=== PATIENT | female | born 1940 | race Caucasian/White ===

== ENCOUNTER 2023-11-27 08:38 | Outpatient (RCR) | payer OTHER, SELFPAY | END 2023-11-27 23:59 | disposition home or self-care (01) | LOC: RPT 08:38 | PROVIDERS: ATTENDING PHYSICIAN Psychiatry & Neurology Neurology; FAMILY PHYSICIAN Internal Medicine Geriatric Medicine | DX: M54.50 Low back pain, unspecified (principal); Z73.6 Limitation of activities due to disability; M62.81 Muscle weakness (generalized) | CPT/HCPCS: 97110; 97162; 97530 ==

== ENCOUNTER → 2023-12-02 08:28 | Outpatient (REF) | payer OTHER, SELFPAY | LOC: PAVMRI 08:28 | PROVIDERS: ATTENDING PHYSICIAN Psychiatry & Neurology Neurology; FAMILY PHYSICIAN Internal Medicine Geriatric Medicine | DX: M54.50 Low back pain, unspecified (principal) | CPT/HCPCS: 72158; A9575 ==

== ENCOUNTER 2023-12-30 09:44 | Outpatient (RCR) | payer OTHER, SELFPAY | END 2023-12-30 23:59 | disposition home or self-care (01) | LOC: RPT 09:44 | PROVIDERS: ATTENDING PHYSICIAN Psychiatry & Neurology Neurology; FAMILY PHYSICIAN Internal Medicine Geriatric Medicine | DX: M54.50 Low back pain, unspecified (principal); Z73.6 Limitation of activities due to disability; R26.2 Difficulty in walking, not elsewhere classified; M62.81 Muscle weakness (generalized) | CPT/HCPCS: 97010; 97110; 97112; 97140; 97530 ==

== ENCOUNTER 2024-01-12 13:56 | Outpatient (RCR) | payer OTHER, SELFPAY | END 2024-01-12 23:59 | disposition home or self-care (01) | LOC: RPT 13:56 | PROVIDERS: ATTENDING PHYSICIAN Psychiatry & Neurology Neurology; FAMILY PHYSICIAN Internal Medicine Geriatric Medicine | DX: M54.50 Low back pain, unspecified (principal); Z73.6 Limitation of activities due to disability; M62.81 Muscle weakness (generalized); R26.2 Difficulty in walking, not elsewhere classified; G89.29 Other chronic pain | CPT/HCPCS: 97110; 97112; 97530 ==

== ENCOUNTER 2024-02-03 08:52 | Outpatient (RCR) | payer OTHER, SELFPAY | END 2024-02-03 12:32 | disposition home or self-care (01) | LOC: RPT 08:52 | PROVIDERS: ATTENDING PHYSICIAN Psychiatry & Neurology Neurology; FAMILY PHYSICIAN Internal Medicine Geriatric Medicine | DX: M54.50 Low back pain, unspecified (principal); Z73.6 Limitation of activities due to disability; M62.81 Muscle weakness (generalized); R26.2 Difficulty in walking, not elsewhere classified; G89.29 Other chronic pain | CPT/HCPCS: 97110; 97530 ==

== ENCOUNTER → 2024-04-06 09:23 | Outpatient (REF) | payer OTHER, SELFPAY | LOC: WDC 09:23 | PROVIDERS: ATTENDING PHYSICIAN Obstetrics & Gynecology Gynecology; FAMILY PHYSICIAN Internal Medicine Geriatric Medicine | DX: Z12.31 Encounter for screening mammogram for malignant neoplasm of breast (principal) | CPT/HCPCS: 77063; 77067 ==

== ENCOUNTER → 2024-04-19 07:45 | Outpatient (REF) | payer OTHER, SELFPAY | LOC: HWRCS 07:45 | PROVIDERS: ATTENDING PHYSICIAN Nuclear Medicine Nuclear Cardiology; FAMILY PHYSICIAN Internal Medicine Geriatric Medicine | DX: I25.10 Atherosclerotic heart disease of native coronary artery without angina pectoris (principal); I48.0 Paroxysmal atrial fibrillation; I34.0 Nonrheumatic mitral (valve) insufficiency | CPT/HCPCS: 93306 ==

== ENCOUNTER → 2024-05-19 06:54 | Outpatient (REF) | payer OTHER, SELFPAY | LOC: PAVMRI 06:54 | PROVIDERS: ATTENDING PHYSICIAN Internal Medicine Geriatric Medicine | DX: R41.3 Other amnesia (principal) | CPT/HCPCS: 70551 ==

== ENCOUNTER → 2024-11-21 13:06 | Outpatient (REF) | payer OTHER, SELFPAY | LOC: RAD 13:06 | PROVIDERS: ATTENDING PHYSICIAN Internal Medicine Geriatric Medicine | DX: I48.0 Paroxysmal atrial fibrillation (principal); E78.5 Hyperlipidemia, unspecified; I10 Essential (primary) hypertension; M25.511 Pain in right shoulder; M79.601 Pain in right arm; M25.512 Pain in left shoulder; K21.9 Gastro-esophageal reflux disease without esophagitis; R42 Dizziness and giddiness; G89.29 Other chronic pain; M54.50 Low back pain, unspecified; R41.3 Other amnesia; Z13.89 Encounter for screening for other disorder | CPT/HCPCS: 71101; 73010 ==

== ENCOUNTER → 2024-11-25 09:03 | Outpatient (REF) | payer OTHER, SELFPAY | LOC: HWRAD 09:03 | PROVIDERS: ATTENDING PHYSICIAN Internal Medicine Geriatric Medicine | DX: R07.81 Pleurodynia (principal) | CPT/HCPCS: 71250 ==

== ENCOUNTER → 2025-03-10 08:52 | Outpatient (REF) | payer OTHER, SELFPAY | LOC: RAD 08:52 | PROVIDERS: ATTENDING PHYSICIAN Nurse Practitioner Adult Health | DX: M54.50 Low back pain, unspecified (principal); M25.551 Pain in right hip | CPT/HCPCS: 72110; 73502 ==

== ENCOUNTER 2025-04-01 17:48 | Emergency (ER) | payer OTHER, SELFPAY ==
[2025-04-01 17:54] VITALS: BP 180/98
[2025-04-01 18:19] VITALS: BMI 29.1
[2025-04-01 18:35] LABS: % Basophils 0.4 % (0-2); % Eosinophils 1.7 % (0-6); % Immature Granulocytes 0.2 % (0-0.5); % Lymphocytes 17.1 % (20.5-51.1); % Neutrophils 74.6 % (42.2-75.2); Absolute Eosinophils 0.1 10^3/uL (0-0.7); Absolute Lymphocytes 1.4 10^3/uL (1.2-3.4); Absolute Monocytes 0.5 10^3/uL (0.1-0.6); Absolute Neutrophils 6.1 10^3/uL (1.4-6.5); Hematocrit 39.1 % (37.0-47.0); Hemoglobin 13.6 g/dL (12.0-16.0); Mean Corp Hgb Conc. 34.8 g/dL (33.0-37.0); Mean Corpuscular Hgb 31.7 pg (27.0-31.0); Mean Corpuscular Volume 91.1 fL (81.0-99.0); Mean Platelet Volume 10.1 fL (7.4-10.4); Nucleated Red Blood Cells % 0 %; Platelet Count 148 10^3/uL (130-400); Red Blood Cell Count 4.29 10^6/uL (4.20-5.40); Red Cell Dist. Width 13.3 % (11.5-14.5); White Blood Cell Count 8.2 10^3/uL (4.8-10.8)
[2025-04-01 18:47] LABS: ALT (SGPT) 18 U/L (0-35); AST (SGOT) 26 U/L (14-36); Albumin 4.1 g/dl (3.5-5.0); Alkaline Phosphatase 92 U/L (38-126); Blood Urea Nitrogen 23 mg/dl (7-17); Carbon Dioxide 27 mmol/L (22-30); Chloride 104 mmol/L (98-107); Estimated Creatinine Clearance 36 ml/min; Glucose 96 mg/dl (70-99); Potassium 4.7 mmol/L (3.5-5.1); Sodium 137 mmol/L (135-145); Total Bilirubin 0.6 mg/dl (0.2-1.3); Total Protein 6.3 g/dl (6.3-8.2); eGFR 55.55
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
[2025-04-01 18:59] LABS: Troponin I < 0.012 ng/ml
[2025-04-01 20:14] VITALS: BP 139/75
[2025-04-01 20:18] LABS: Urine Albumin Negative (Neg - Trace); Urine Bilirubin Negative (Negative); Urine Character Clear (Clear); Urine Color Yellow; Urine Glucose Negative (Negative); Urine Ketone Negative (Negative); Urine Leukocyte 1+ (Negative); Urine Nitrite Negative (Negative); Urine Occult Blood Negative (Negative); Urine Urobilinogen Negative (Neg - 1+)
[2025-04-01 20:39] LABS: Urine Red Blood Cell 0-2 /HPF (0-2)
[2025-04-01] MEDS: TYLENOL 650 MG PO (21:30)
[2025-04-01] MEDS: LIDOCAINE 4% PATCH 1 PATCH TOPICAL (21:30)
[2025-04-01 21:35] LABS: Troponin I < 0.012 ng/ml
== END 2025-04-01 22:25 | disposition home or self-care (01) ==
LOC: EMR 17:48
PROVIDERS: Nurse Practitioner; EMERGENCY PHYSICIAN Emergency Medicine; FAMILY PHYSICIAN Internal Medicine Geriatric Medicine
DX: R07.9 Chest pain, unspecified (principal); M54.2 Cervicalgia; G89.29 Other chronic pain; I48.91 Unspecified atrial fibrillation; I25.10 Atherosclerotic heart disease of native coronary artery without angina pectoris; I10 Essential (primary) hypertension; E78.5 Hyperlipidemia, unspecified; Z86.73 Personal history of transient ischemic attack (TIA), and cerebral infarction without residual deficits; J45.909 Unspecified asthma, uncomplicated; Z90.49 Acquired absence of other specified parts of digestive tract
CPT/HCPCS: 99285; 71046; 74177; 80053; 81003; 81015; 84484; 85025; 93005; Q9967

== ENCOUNTER → 2025-04-17 14:41 | Outpatient (REF) | payer OTHER, SELFPAY | LOC: PAVMRI 14:41 | PROVIDERS: ATTENDING PHYSICIAN Internal Medicine Geriatric Medicine | DX: M54.50 Low back pain, unspecified (principal); M54.16 Radiculopathy, lumbar region | CPT/HCPCS: 72158; A9575 ==

== ENCOUNTER → 2025-04-21 10:05 | Outpatient (REF) | payer OTHER, SELFPAY | LOC: HWWDC 10:05 | PROVIDERS: ATTENDING PHYSICIAN Obstetrics & Gynecology Gynecology; FAMILY PHYSICIAN Internal Medicine Geriatric Medicine | DX: Z12.39 Encounter for other screening for malignant neoplasm of breast (principal) | CPT/HCPCS: 77063; 77067 ==

== ENCOUNTER 2025-05-13 20:15 | Inpatient (IN) | payer OTHER, SELFPAY ==
[2025-05-13] VITALS (8 sets, daily range): BP systolic 101–141; BP diastolic 54–85; BMI 25.4
[2025-05-13 14:44] LABS: Hematocrit 29.8 % (37.0-47.0); Hemoglobin 9.9 g/dL (12.0-16.0); Mean Corp Hgb Conc. 33.2 g/dL (33.0-37.0); Mean Corpuscular Volume 94.0 fL (81.0-99.0); Nucleated Red Blood Cells % 0 %; Platelet Count 150 10^3/uL (130-400); Red Cell Dist. Width 12.9 % (11.5-14.5)
[2025-05-13 14:49] LABS: APTT 30.8 Sec (23.4-35.0); INR 1.68; PT 20.0 Sec (11.4-14.6)
[2025-05-13 14:59] LABS: ALT (SGPT) 17 U/L (0-35); AST (SGOT) 24 U/L (14-36); Albumin 3.5 g/dl (3.5-5.0); Alkaline Phosphatase 49 U/L (38-126); Blood Urea Nitrogen 46 mg/dl (7-17); Calcium 9.0 mg/dl (8.4-10.2); Carbon Dioxide 24 mmol/L (22-30); Chloride 104 mmol/L (98-107); Estimated Creatinine Clearance 37 ml/min; Glucose 124 mg/dl (70-99); Potassium 4.6 mmol/L (3.5-5.1); Sodium 134 mmol/L (135-145); Total Protein 5.3 g/dl (6.3-8.2); eGFR > 60.00
--- NOTE | 2025-05-13 17:01 | ED.GENMED ---
History of Present Illness
General
Chief Complaint: Rectal Bleeding
Source: patient
Exam Limitations: none
Time Seen by Provider: 05/13/25 16:07
Nursing documentation reviewed up to this point in time: agreed with
History of Present Illness
History of Present Illness:
Patient is an 85-year-old female past medical history of CAD A-fib hypertension reflux cholecystectomy hypertension hyperlipidemia stroke on Xarelto presents today for evaluation. Yesterday she was nauseous and did vomit dark emesis. This morning
she woke up feeling nauseous dizzy weak and had 2 episodes of black dark stool mixed with blood. She denies any active bleeding now.
Past History
Past History
ED Past Medical History: Arrthythmia, Asthma, GERD, HTN, Other (cholelithiasis, osteoporosis, osteoarthritis) and Other (back pain)
ED Past Surgical History: Cholecystectomy and Orthopedic (lumbar spinal fusion, left shoulder surgery)
Social History
Tobacco: Non-smoker
Alcohol: None
Personal:
Living: with family
Employment: Retired
Family History
Family History: Other (noncontributory)
Phy Exam
General Physical Exam
General Presentation: well appearing
General age: appears stated age
General Skin: warm and dry
General Habitus: normal
General Mental: alert
General Hydration: appears well hydrated
Cardiovascular Exam
Cardiovascular Exam: irregularly irregular
Pulmonary Exam
Pulmonary Exam: lungs clear and no respiratory distress
Gastrointestinal Exam
Gastrointestinal Exam: soft and other (left sided abd tenderness ; rectal exam dark maroon stool heme positive )
Neurological Exam
Neurological Exam: alert and oriented x3
Musculoskeletal Exam
Musculoskeletal Exam: full ROM
Course
Orders/Labs/Results
Orders:
Orders
05/13/25 14:17
Electrocardiogram (*1) Urgent
Reason for Study: Vertigo / Dizzy
EKG- Treatment ONCE
05/13/25 14:27
Type+Screen Urgent
Complete Blood Count/With Diff Urgent
Comprehensive Metabolic Panel Urgent
PT/INR [Prothrombin Time] Urgent
Is patient on Coumadin/Warfarin?: No
Comment: kateto
PTT Urgent
05/13/25 14:45
ABO2 Urgent
BBK Wristband Number:
Associate notified that ABO2 has been ordered: MANDA
Date: 05/13/25
Time: 14:37
Order Processing Manager ID: [id number]
05/13/25 17:11
CT Abd/pelvis W Iv Cont Urgent
Comment:
Reason For Exam: pain rectal bleed
Pantoprazole [Protonix IV] 40 mg IV NOW STA
05/13/25 17:15
Pantoprazole 80 mg/100 ml Nss [Protonix] 80 mg in 100 ml IV Q10H
05/13/25 20:03
Admit/Transfer Patient As Directed
Co-Sign Provider:
Level of Care: Inpatient admission
Assign to:: Telemetry
Physician / Group: Bora
Diagnosis: UGIB
Reason for Telemetry: Arrhythmia
Date to Stop Telemetry: 05/16/25
Time to Stop Telemetry: 11:00
Reason for Hospitalization: UGIB
Expected length of stay greater than two midnights?: Yes
ELOS- Estimated Length of Stay in days: 3
I certify the patient meets the requirements for IP care: Yes
PRN Pain Medication Management As Directed
May give lesser potent ordered pain med per pt: Yes
preference::
Protocol:: Medication orders for pain may be administered in a
manner that supports deferring to patient preference
when the pt is:
- Requesting an ordered lesser potent pain medication.
Least to most potent pain medications are defined
as: acetaminophen < NSAID < tramadol < opioids
(morphine, oxycodone, hydromorphone).
- Requesting a lesser dose of the same medication IF
ORDERED.
- Requesting a less intrusive route of administration
if both routes are prescribed by the provider (PO <
IV).
05/13/25 20:05
Code Status As Directed
Resuscitation Status: Full Code
05/16/25 11:00
DC Protocol for Telemetry ONCE
Abnormal Lab Results
05/13/25
14:27
WBC 11.3 H 10^3/uL
(4.8-10.8)
RBC 3.17 L 10^6/uL
(4.20-5.40)
Hgb 9.9 L g/dL
(12.0-16.0)
Hct 29.8 L %
(37.0-47.0)
MCH 31.2 H pg
(27.0-31.0)
MPV 10.6 H fL
(7.4-10.4)
Abs Immat Gran (auto) 0.1 H 10^3/uL
(0-0.05)
Absolute Neuts (auto) 9.1 H 10^3/uL
(1.4-6.5)
Neutrophils % 80.8 H %
(42.2-75.2)
Lymphocytes % 15.2 L %
(20.5-51.1)
PT 20.0 H Sec
(11.4-14.6)
Sodium 134 L mmol/L
(135-145)
BUN 46 H mg/dl
(7-17)
Glucose 124 H mg/dl
(70-99)
Total Protein 5.3 L g/dl
(6.3-8.2)
05/13/25 14:27
05/13/25 14:27
Vital Signs
Initial and Last Documented VS:
Initial Vital Signs
Temp Pulse Resp BP Pulse Ox
97.7 F 117 16 101/54 99
05/13/25 14:17 05/13/25 14:17 05/13/25 14:17 05/13/25 14:17 05/13/25 14:17
Last Documented Vital Signs
Temp Pulse Resp BP Pulse Ox
97.7 F 84 18 129/71 98
05/13/25 14:17 05/13/25 19:45 05/13/25 19:45 05/13/25 19:00 05/13/25 19:45
MDM/Problems Addressed
Differential Diagnosis Includes:
Not limited to GI bleed diverticular bleed anemia patient is an 85
MDM/Problems Addressed:
Patient is an 85-year-old female on Xarelto for A-fib presents with complaints of nausea vomiting dark emesis along with episodes of dark black stools today. She did feel weak and dizzy. On exam patient has no active bleeding but does have maroon
dark stool which is heme positive. Abdomen soft she does complain of mild tenderness to left abdomen patient's hemoglobin is 9.9 which is significantly decreased from 13.6 April 01.
She will require admission for GI bleed. Will order Protonix and will CAT scan because of pain. Type and screen ordered however patient does not require blood transfusion at this time.
CT negative. Patient continues with no active bleeding here will require admission.
Chronic conditions affecting care:
on xarelto for afib
*Radiology
Radiology exam reviewed: radiology read reviewed
*Pulse Oximetry
SaO2: 98
Oxygen Mode of Delivery: Room air
Patient hypoxic: no
*EKG
Interpreted by ED Provider?: Yes
Heart Rate: 116
Rate: tachycardiac
Rhythm: sinus
Ischemia: non-specific ST changes
*Critical Care Note
Total Time (30-74mins, 75-104mins- exclusive of procedures): Not Applicable
ED Attending Note
-
Portions of this chart may have been created with voice recognition software.� Occasional wrong word or��sound alike� substitutions may have occurred due to the inherent limitations of voice recognition software.
Discharge Plan
Departure
Patient Disposition: Admit
Date of Disposition: 05/13/25
Time of Disposition: 19:18
Admit to: Telemetry
Admit to doctor: hospitalist
Presentation/result/management discussed w/ accepting MD/DO: Hospitalist
Patient with high blood pressure during this ER visit?: No
Condition: Fair
Covid-19: Not Applicable
Discharge Problem:
GI bleed, Anemia
Interventions
Interventions:
*Risk Screen - Suicide Last Done: 05/13/25 14:22
*General Assessment Last Done: 05/13/25 14:22
*Neglect/Abuse Screening Last Done: 05/13/25 14:22
*ED- Fall Risk Assessment Last Done: 05/13/25 14:22
*ED COVID-19 Vaccine History Last Done: 05/13/25 14:22
KF-Ffotrh-Kmgqlnraff Assessment Last Done: 05/13/25 14:22
ED- Cardiac Assessment Last Done: 05/13/25 14:22
ED- Pulmonary Assessment Last Done: 05/13/25 14:22
[2025-05-13] MEDS: PROTONIX IV 40 MG IV (17:21)
[2025-05-13] MEDS: PROTONIX 100 IV (17:21)
--- NOTE | 2025-05-13 20:14 | HPS.HSE ---
Family Physician
-
Family Physician: Parker Prince
Chief Complaint
-
Nausea, Black Stools
History of Present Illness
Patient is an 85y F with PMH significant for ASCVD, hypertension and GERD who presents to ED complaining of N/V and black stools. Patient states that she developed nausea yesterday afternoon shortly after her daily walk. She had a single
episode of non-bloody emesis and continued to feel nauseated. She had a single episode of loose, black colored stool. Her nausea persisted into today and she had another bowel movement - more formed but also black in color. Patient notes that
when she flushed she noted red discoloration in the water.
Patient reports feeling lightheaded and weak for the past 24 hours. She cannot stand for long periods of time without becoming lightheaded. She denies any LOC or falls.
No prior h/o GI bleeding.
She is on Xarelto for A-Fib and ASCVD. Her last dose of this was Thursday evening.
Medical History
Past Medical History
Past Medical History: Reports Other
Additional Past Medical History:
ASCVD (CAD, CVA)
Hypertension
GERD
Squamous Cell Skin Cancer
Scoliosis
Past Surgical History: Reports Other
Additional Past Surgical History:
PTCA with Stent
Cholecystectomy
Lumbar Discectomy
Spinal Surgery
Tubal Ligation
Cataracts
Left Breast Biopsy (benign)
Right Tib-Fib ORIF
Social History
Tobacco: Non-smoker
Alcohol: None
Drug: None
Family History
Family History: Not pertinent
Allergies / Home Medications
Allergies reflects when Allergies were last updated in [facility].
Home Medications with original date entered in [facility]
Allergy/Medication List:
Allergies
Allergy/AdvReac Type Severity Reaction Status Date / Time
codeine Allergy Vomiting Verified 04/01/25 17:56
tramadol Allergy Nausea / Verified 04/01/25 17:56
Vomiting
Home Medications
ascorbic acid (vitamin C) 1,000 mg tablet (Vitamin C) 1,000 mg PO DAILY 06/09/13
multivitamin with folic acid 400 mcg tablet (Tab-A-Steve) 1 tab PO DAILY 01/19/15
omeprazole 20 mg capsule,delayed release 20 mg PO BID 04/13/18
amlodipine 2.5 mg tablet 2.5 mg PO DAILY 05/13/25
cholecalciferol (vitamin D3) 25 mcg (1,000 unit) tablet 25 mcg PO DAILY 05/13/25
coenzyme Q10 100 mg tablet 100 mg PO DAILY 05/13/25
cyclobenzaprine 10 mg tablet 10 mg PO DAILY 05/13/25
memantine 5 mg tablet 5 mg PO BID 05/13/25
metoprolol succinate 25 mg tablet,extended release 24 hr 25 mg PO DAILY 05/13/25
polyvinyl alcohol 1.4 % eye drops (Artificial Tears (polyvinyl alcohol)) 1 drp ophthalmic (eye) DAILYPRN PRN dry eyes 05/13/25
rivaroxaban 20 mg tablet (Xarelto) 20 mg PO DAILY 05/13/25
sodium chloride 3 % nasal mist (Saline Nasal Mist) 1 spray intranasal DAILYPRN PRN dry sinuses 05/13/25
spironolactone 25 mg tablet 12.5 mg PO DAILY 05/13/25
tramadol 50 mg tablet 50 mg PO DAILYPRN PRN moderate pain 05/13/25
Review of Systems
-
History Source: Patient
A 12 point ROS was completed and negative except as noted: Yes
Constitutional: Reports Fatigue; Denies Fever or Chills
Respiratory: Denies Cough or Trouble Breathing
Cardiac: Denies Chest Pain or Palpitations
Abdomen/GI: Reports Nausea, Vomiting, Diarrhea and Black Stools; Denies Abdominal Pain
: Denies Dysuria, Frequency or Flank Pain
Musculoskeletal: Denies Joint Pain or Edema
Neurological: Reports Dizzy; Denies Headache
Psych: Denies Depression or Anxiety
Physical Exam
Vital Signs
Vital Signs
Temp Pulse Resp BP Pulse Ox
97.7 F 84 18 129/71 98
05/13/25 14:17 05/13/25 19:45 05/13/25 19:45 05/13/25 19:00 05/13/25 19:45
Physical Exam
General: Other (85y F in no acute distress.)
HEENT: Moist mucous membranes and PERRLA
Respiratory: Clear; No Wheezes, Rales or Rhonchi
Cardiac: S1/S2 and Regular Rhythm; No Murmur
GI: Soft, Non Distended, Normal Bowel Sounds and Other (Mildly, diffusely tender.)
Musculoskeletal: No Clubbing, No Cyanosis and Other (1+ edema of the RLE / post-surgical changes.)
Neuro: AO x 3
Laboratory Results
-
05/13/25 14:27
05/13/25 14:27
Laboratory Results
PT 20.0 Sec (11.4-14.6) H 05/13/25 14:27
INR 1.68 05/13/25 14:27
APTT 30.8 Sec (23.4-35.0) 05/13/25 14:27
Total Bilirubin 0.8 mg/dl (0.2-1.3) 05/13/25 14:27
AST 24 U/L (14-36) 05/13/25 14:27
ALT 17 U/L (0-35) 05/13/25 14:27
Alkaline Phosphatase 49 U/L (38-126) 05/13/25 14:27
Impression/Plan
-
A/P: Patient is an 85y F with PMH significant for ASCVD, hypertension and GERD who presents to ED complaining of N/V and black stools for the past 2 days.
UGIB / Melena
Acute Blood Loss Anemia secondary to the above
N/V - suspected gastritis
GERD
- Admit for further evaluation and treatment.
- Hgb 9.9 down from baseline of 13 - 14.
- IVF support. Follow serial H&H and transfuse if needed.
- GI evaluation for additional recommendations / possible endoscopic exam.
- Continue IV PPI infusion for now - change to BID PPI once completed.
- Supportive care, antiemetics, etc.
ASCVD
Benign Hypertension
- Stable. No complaints of chest pain, dyspnea, etc.
- Holding Xarelto acutely due to bleeding.
- ASA stopped recently due to increased bruising.
- Hold other CV meds for now to avoid hypotension, etc.
- Resume usual meds when stable to do so.
DVT Prophylaxis: SCDs
Code Status: Full
[2025-05-13 22:19] LABS: Hematocrit 22.4 % (37.0-47.0); Hemoglobin 7.9 g/dL (12.0-16.0)
[2025-05-13] MEDS: NSS 1000 IV (22:22)
[2025-05-14] VITALS (12 sets, daily range): BP systolic 116–162; BP diastolic 70–91
[2025-05-14 04:39] LABS: Hematocrit 21.0 % (37.0-47.0); Hemoglobin 7.2 g/dL (12.0-16.0)
[2025-05-14 04:43] LABS: Blood Urea Nitrogen 44 mg/dl (7-17); Calcium 7.8 mg/dl (8.4-10.2); Carbon Dioxide 21 mmol/L (22-30); Chloride 114 mmol/L (98-107); Estimated Creatinine Clearance 41 ml/min; Glucose 92 mg/dl (70-99); Potassium 4.1 mmol/L (3.5-5.1); Sodium 136 mmol/L (135-145); eGFR > 60.00
--- NOTE | 2025-05-14 04:45 | PTCARENOTE ---
House provider notified of Hgb of 7.2 from 9 on adm this evening. Pt continues to have mod bloody/black stool has remained on bedrest and has remained asymptomatic in bed.
[2025-05-14] MEDS: NSS 1000 IV ×2 (05:41→18:09)
--- NOTE | 2025-05-14 08:17 | CON.GI ---
Consultation
-
Date/Time Consultation Performed: 05/14/25
Performing Provider: Petr Griffin MD
Reason for Consultation: GI bleed
Medical History
Chief Complaint / HPI
Chief Complaint: melena
History of Present Illness:
The patient is an 85-year-old female with past medical history as noted with GI bleed. For the past couple of days she has been feeling some GI upset, then yesterday after going for a walk had nausea and vomiting. Unclear if there was a small
mount of blood, there was not a large amount of blood in emesis. She then went to the bathroom several times with black stool. She was feeling lightheaded. Overnight she had a couple of episodes of melena, though no further vomiting. She still
has some GI discomfort though not as severe. She denies any fever, chills, chest pain or shortness of breath. She denies any extraneous NSAIDs, though has been on Xarelto for A-fib and CVA in the past, last taken the evening of May 12 by report..
Past Medical History
Past Medical History: Other (Coronary disease status post stent, CVA, hypertension, GERD, scoliosis, skin cancer, afib)
Past Surgical History: Other (Cholecystectomy, lumbar discectomy, spinal surgery, cataracts, right leg surgery)
Social History
Tobacco: Non-Smoker
Alcohol: None
Family History
Family History: Reviewed & Not Pertinent
Allergies / Home Medications
Allergy/AdvReac Type Severity Reaction Status Date / Time
codeine Allergy Vomiting Verified 04/01/25 17:56
tramadol Allergy Nausea / Verified 04/01/25 17:56
Vomiting
�Medication �Instructions �Recorded
ascorbic acid (vitamin C) 1,000 mg 1,000 mg PO DAILY Supplement 06/09/13
tablet (Vitamin C)
multivitamin with folic acid 400 1 tab PO DAILY Supplement 01/19/15
mcg tablet (Tab-A-Steve)
omeprazole 20 mg capsule,delayed 20 mg PO BID GERD 04/13/18
release
amlodipine 2.5 mg tablet 2.5 mg PO DAILY Blood Pressure 05/13/25
cholecalciferol (vitamin D3) 25 25 mcg PO DAILY Supplement 05/13/25
mcg (1,000 unit) tablet
coenzyme Q10 100 mg tablet 100 mg PO DAILY Supplement 05/13/25
cyclobenzaprine 10 mg tablet 10 mg PO DAILY Muscle Spasms 05/13/25
memantine 5 mg tablet 5 mg PO BID Mental Health/Anxiety 05/13/25
metoprolol succinate 25 mg 25 mg PO DAILY Blood Pressure 05/13/25
tablet,extended release 24 hr
polyvinyl alcohol 1.4 % eye drops 1 drp ophthalmic (eye) DAILYPRN 05/13/25
(Artificial Tears (polyvinyl PRN dry eyes
alcohol))
rivaroxaban 20 mg tablet (Xarelto) 20 mg PO DAILY Blood Clot 05/13/25
Prevention/Tx
sodium chloride 3 % nasal mist 1 spray intranasal DAILYPRN PRN 05/13/25
(Saline Nasal Mist) dry sinuses
spironolactone 25 mg tablet 12.5 mg PO DAILY Fluid 05/13/25
Retention/Swelling
tramadol 50 mg tablet 50 mg PO DAILYPRN PRN moderate pain 05/13/25
Review of Systems
-
All other systems: A 12 pt ROS was Negative except as stated above in HPI
Vital Signs
Temp Pulse Resp BP Pulse Ox
98.5 F 104 16 131/72 98
05/14/25 07:50 05/14/25 07:50 05/14/25 07:50 05/14/25 07:50 05/14/25 07:50
Physical Exam
Exam
General: NAD
HEENT: MMM, anicteric, no lymphadenopathy
Heart: Irregular, no murmurs
Lungs: CTA bilaterally
Abdomen: normal bowel sounds, soft, no tenderness, no rebound or guarding, no masses, bruits or ascites
Extremeties: no edema
Skin: no rashes
Results
WBC 11.3 10^3/uL (4.8-10.8) H 05/13/25 14:27
Hgb 7.2 g/dL (12.0-16.0) L 05/14/25 04:00
Hct 21.0 % (37.0-47.0) L 05/14/25 04:00
MCV 94.0 fL (81.0-99.0) 05/13/25 14:27
Plt Count 150 10^3/uL (130-400) 05/13/25 14:27
Absolute Neuts (auto) 9.1 10^3/uL (1.4-6.5) H 05/13/25 14:27
PT 20.0 Sec (11.4-14.6) H 05/13/25 14:27
INR 1.68 05/13/25 14:27
APTT 30.8 Sec (23.4-35.0) 05/13/25 14:27
Sodium 136 mmol/L (135-145) 05/14/25 04:00
Potassium 4.1 mmol/L (3.5-5.1) 05/14/25 04:00
Chloride 114 mmol/L (98-107) H 05/14/25 04:00
Carbon Dioxide 21 mmol/L (22-30) L 05/14/25 04:00
BUN 44 mg/dl (7-17) H 05/14/25 04:00
Creatinine 0.8 mg/dL (0.6-1.0) 05/14/25 04:00
Calcium 7.8 mg/dl (8.4-10.2) L 05/14/25 04:00
Total Bilirubin 0.8 mg/dl (0.2-1.3) 05/13/25 14:27
AST 24 U/L (14-36) 05/13/25 14:
ALT 17 U/L (0-35) 05/13/25 14:27
Alkaline Phosphatase 49 U/L (38-126) 05/13/25 14:27
Diagnostic Image Results:
CT:
IMPRESSION:
No CT evidence for an acute inflammatory process in the abdomen or pelvis. Chronic findings, as detailed above.
Prior GI Procedures:
EGD:
Colonoscopy:
Assessment / Plan
-
1. GI bleed: With melena, dyspepsia and episode of vomiting, though without significant hematemesis, in the setting of anticoagulation, likely secondary to peptic ulcer disease. Her hemoglobin has drifted down overnight from 9.9-7.2, though
hemodynamics have remained stable. At this point would continue PPI twice daily, IV fluids and supportive care and trend hemoglobin, transfuse if less than 7. Okay for clear liquids today, will plan EGD tomorrow when she has been off of Xarelto
for 48 hours, sooner if signs of brisk active bleeding.
-
-
Thank you for consultation and allowing me to participate in the patient's care. Please call the store sales consultant GI physician during the after hours with any questions or concerns.
[2025-05-14] MEDS: NSS (PRESERVATIVE FREE) 10 ML IV ×2 (09:14→20:27)
[2025-05-14] MEDS: PROTONIX IV 40 MG IV ×2 (09:14→20:27)
[2025-05-14 09:26] LABS: Hematocrit 20.2 % (37.0-47.0); Hemoglobin 6.9 g/dL (12.0-16.0)
[2025-05-14] MEDS: REFRESH EYE DROPS (PF) 1 DROPS OPHTH ×2 (09:30→21:41)
--- NOTE | 2025-05-14 09:59 | W.PN.HOSP.TC ---
Today's Communication/Plan
-
Transfuse
Monitor hemoglobin
N.p.o. after midnight
Assessment / Plan
Assessment / Plan
Gen-AAOx3, NAD
HEENT-NC, AT, anicteric, clear oral mm
Neck-supple
CV-reg, no M, +S1/S2
Lungs-clear B/L
Abd-soft, mild epigastric tenderness without guarding or rebound
Ext-no edema
Musculoskeletal-no cyanosis, clubbing
Skin-warm and dry
Neuro-grossly non-focal
Psych-calm, cooperative
Acute upper GI bleed -GI input noted. N.p.o. after midnight for EGD Thursday. If her bleeding becomes active or she is unstable then EGD could be done today, discussed with Dr. Griffin.
Continue antiemetics for nausea. Continue IV Protonix.
Acute blood loss anemia -due to acute GI bleed in the setting of chronic anticoagulation with Xarelto.
Baseline hemoglobin 13 in March of this year, admission hemoglobin 9.9.
Hold further Xarelto, last dose was Thursday. Relatively hemodynamically stable.
Transfuse 2 units of blood now, hemoglobin 6.9 this morning. Patient and family provided consent for transfusion.
CAD -stable.
History of stroke
GERD
Essential hypertension -stable.
Mixed hyperlipidemia
Paroxysmal atrial fibrillation -hold Xarelto as above.
History of squamous cell skin cancer
Scoliosis
Full code
and daughter updated at the bedside. All questions answered.
Anticipated Discharge: > 48 hours
Subjective/Interval History
-
Date of Service: May 14, 2025
Patient seen and examined. No specific complaints currently.
Objective Data
-
Labs:
Laboratory Results
05/13/25 05/14/25 05/14/25
22:00 04:00 09:14
WBC
Hgb 7.9 L D 7.2 L 6.9 L*
Hct 22.4 L 21.0 L 20.2 L*
Plt Count
Sodium 136
Potassium 4.1
Chloride 114 H
Carbon Dioxide 21 L
BUN 44 H
Creatinine 0.8
Glucose 92
Calcium 7.8 L
05/14/25 05/14/25
15:37 18:00
WBC Pending
Hgb Cancelled Pending
Hct Cancelled Pending
Plt Count Pending
Sodium
Potassium
Chloride
Carbon Dioxide
BUN
Creatinine
Glucose
Calcium
Vital Signs:
Vital Signs
Temp Pulse Resp BP Pulse Ox
98.5 F 104 16 131/72 98
05/14/25 07:50 05/14/25 07:50 05/14/25 07:50 05/14/25 07:50 05/14/25 07:50
I&O
05/13/25 05/14/25 05/15/25
06:59 06:59 06:59
Intake Total 1000 / 1000
Balance 1000 / 1000
Review of Systems
-
History Source: Patient
All other systems: Reviewed and negative
--- NOTE | 2025-05-14 12:25 | PTCARENOTE ---
Addendum entered by Laura Rosenthal RN 05/14/25 15:48:
20g in LAC
Original Note:
pt's Hg6.9 started 1of 2 PRBC at 1230 via 20g in RAC with no complications.
--- NOTE | 2025-05-14 13:35 | CM ---
Initial assessment completed with pt, , and daughter at bedside.
Pt in an 85yr old female admitted with GI Bleed. EGD scheduled for Thursday
At baseline, pt lives with her in a [place] community in a 1 level home with 0ste.
At baseline, pt is indep. Pt does not use a walker within the home, though does use RW when out.
Pt does not drive.
Pt has a RW, Rollator, cane, commode, shower chair and bars.
Pt has no current/hx of VN/SNF
PCP; Parker Prince
Pharm; [facility]
PLAN; Pending PT/OT recommendations; prefers VN if there are needs
[2025-05-14] MEDS: NSS IV (14:43)
--- NOTE | 2025-05-14 15:48 | PTCARENOTE ---
the family is asking if pt can have a PICC line placed b/c of the difficulty of drawing labs and pain to pt. She has skin cancer to right forearm being treated with a cream. They stated previous hospitalizations she had a [facility]. Not sure if she
was hospitalized here. sent Dr. Kyung forte TT.
second unit of PRBC started without complications via 20g LAC. had a CLD, tolerated. one soft BM steph blood/melena.
[2025-05-14 20:11] LABS: Hematocrit 25.7 % (37.0-47.0); Hemoglobin 9.3 g/dL (12.0-16.0); Mean Corp Hgb Conc. 36.2 g/dL (33.0-37.0); Mean Corpuscular Volume 90.5 fL (81.0-99.0); Red Cell Dist. Width 14.4 % (11.5-14.5)
[2025-05-14 20:25] LABS: Nucleated Red Blood Cells % 0 %; Platelet Count 80 10^3/uL (130-400)
[2025-05-14] MEDS: ROBITUSSIN DM 10 ML PO (21:01)
--- NOTE | 2025-05-14 21:30 | PTCARENOTE ---
Pt. stating after dinner her throat had become coated in a persistent phlegm she was unable to cough up. [facility] [employer] contacted and given Laurent PETERS with positive results.
[2025-05-15] VITALS (12 sets, daily range): BP systolic 18–153; BP diastolic 48–92; PULSE 92
[2025-05-15] MEDS: NSS 1000 IV ×2 (02:25→11:36)
[2025-05-15 06:23] LABS: Hematocrit 24.7 % (37.0-47.0); Hemoglobin 8.9 g/dL (12.0-16.0); Mean Corp Hgb Conc. 36.0 g/dL (33.0-37.0); Mean Corpuscular Volume 91.1 fL (81.0-99.0); Nucleated Red Blood Cells % 0 %; Platelet Count 69 10^3/uL (130-400); Red Cell Dist. Width 14.3 % (11.5-14.5)
[2025-05-15 06:46] LABS: ALT (SGPT) 14 U/L (0-35); AST (SGOT) 24 U/L (14-36); Albumin 2.6 g/dl (3.5-5.0); Alkaline Phosphatase 37 U/L (38-126); Blood Urea Nitrogen 18 mg/dl (7-17); Calcium 7.7 mg/dl (8.4-10.2); Carbon Dioxide 23 mmol/L (22-30); Chloride 114 mmol/L (98-107); Estimated Creatinine Clearance 41 ml/min; Glucose 92 mg/dl (70-99); Potassium 3.6 mmol/L (3.5-5.1); Sodium 138 mmol/L (135-145); Total Protein 4.3 g/dl (6.3-8.2); eGFR > 60.00
[2025-05-15] MEDS: REFRESH EYE DROPS (PF) 1 DROPS OPHTH (07:44)
[2025-05-15] MEDS: PROTONIX IV 40 MG IV (07:46)
[2025-05-15] MEDS: NSS (PRESERVATIVE FREE) 10 ML IV (07:46)
--- NOTE | 2025-05-15 09:54 | PTCARENOTE ---
left for UGI about 0940. LUE is swollen. IV is patent. Dr. Almonte in room , is ordering an doppler US. pt c/o severe right shoulder pain adding a Lido patch.
[2025-05-15] MEDS: LIDOCAINE 4% PATCH 1 PATCH TOPICAL (11:37)
--- NOTE | 2025-05-15 14:11 | W.PN.HOSP.TC ---
Today's Communication/Plan
-
Possible discharge tomorrow if no more recurrence of GI bleed
Assessment / Plan
Assessment / Plan
Acute upper GI bleed -appreciate GI input, 05/15 endoscopy shows Ruth-Boyer tear, small hiatal hernia, normal duodenum. GI recommends PPI twice daily -will change from IV to p.o.. Monitor overnight. If hemoglobin is stable, can discharge
tomorrow on PPI twice daily for 4 weeks, then daily. Continue holding anticoagulation for 5 days.
Acute blood loss anemia -due to acute GI bleed in the setting of chronic anticoagulation with Xarelto.
Baseline hemoglobin 13 in March of this year, admission hemoglobin 9.9.
Hold further Xarelto, last dose was Thursday. Relatively hemodynamically stable.
Hemoglobin improved to 8.9 from 6.9, status post 2 units packed red blood cells on 05/14
Trend hemoglobin
Right shoulder pain�likely from arthritis, order lidocaine patch
Left upper extremity edema�ultrasound negative for clots, stop IV fluids, supportive care
CAD -stable.
History of stroke
GERD
Essential hypertension -resume amlodipine and spironolactone.
Mixed hyperlipidemia
Paroxysmal atrial fibrillation -resume metoprolol, hold Xarelto as above.
History of squamous cell skin cancer
Scoliosis
DVT prophylaxis�SCDs
Full code
Updated daughter on phone 05/15
Total time spent to see the patient on the floor, examine the patient, review data and lab results, discuss treatment plan with patient, nursing staff around 45 minutes.
Physical exam
Gen-AAOx3, NAD
HEENT-NC, AT, anicteric, clear oral mm
Neck-supple
CV-reg, no M, +S1/S2
Lungs-clear B/L
Abd-soft, mild epigastric tenderness without guarding or rebound
Ext-left upper extremity edema noted
Musculoskeletal-no cyanosis, clubbing
Skin-warm and dry
Neuro-grossly non-focal
Psych-calm, cooperative
Anticipated Discharge: Within 24 hours
Subjective/Interval History
-
Date of Service: May 15, 2025
Patient complains of right shoulder pain. She had 1 bloody bowel movement yesterday during her blood transfusion. Denies lightheadedness, denies dizziness. No fever, no vomiting.
Objective Data
-
Labs:
Laboratory Results
05/15/25
06:00
WBC 8.0
Hgb 8.9 L
Hct 24.7 L
Plt Count 69 L
Sodium 138
Potassium 3.6
Chloride 114 H
Carbon Dioxide 23
BUN 18 H
Creatinine 0.8
Glucose 92
Calcium 7.7 L
Total Bilirubin 1.6 H
AST 24
ALT 14
Alkaline Phosphatase 37 L
Vital Signs:
Vital Signs
Temp Pulse Resp BP Pulse Ox
98.1 F 95 18 149/82 98
05/15/25 07:25 05/15/25 07:25 05/15/25 07:25 05/15/25 07:25 05/15/25 07:25
I&O
05/14/25 05/15/25 05/16/25
06:59 06:59 06:59
Intake Total 1000 / 1000 1515 / 1515
Balance 1000 / 1000 1515 / 1515
--- NOTE | 2025-05-15 16:14 | CM ---
Reviewed the chart notes and spoke with the patient at the bedside. IMM reviewed. CM continues to be available to patient/family and is monitoring medical plan for needs at discharge.
Plan: Discharge to home when medically stable. No anticipated needs noted at this time.
[2025-05-15] MEDS: TOPROL XL PO (17:46)
[2025-05-15] MEDS: TYLENOL 650 MG PO (17:47)
[2025-05-15] MEDS: PROTONIX 40 MG PO (20:32)
[2025-05-15] MEDS: NAMENDA 5 MG PO (20:32)
[2025-05-15] MEDS: REMOVE LIDOCAINE PATCH 1 PATCH REMOVE (20:33)
[2025-05-16 03:20] VITALS: BP 129/68
[2025-05-16 06:00] VITALS: BMI 26.9
[2025-05-16 07:24] LABS: Hematocrit 28.9 % (37.0-47.0); Hemoglobin 10.0 g/dL (12.0-16.0); Mean Corp Hgb Conc. 34.6 g/dL (33.0-37.0); Mean Corpuscular Volume 92.6 fL (81.0-99.0); Platelet Count 83 10^3/uL (130-400); Red Cell Dist. Width 14.1 % (11.5-14.5)
[2025-05-16 07:30] VITALS: BP 131/84
[2025-05-16] MEDS: NORVASC 2.5 MG PO (09:18)
[2025-05-16] MEDS: NAMENDA 5 MG PO (09:20)
[2025-05-16] MEDS: PROTONIX 40 MG PO (09:21)
[2025-05-16] MEDS: TOPROL XL 25 MG PO (09:21)
[2025-05-16] MEDS: ALDACTONE 12.5 MG PO (09:21)
[2025-05-16] MEDS: LIDOCAINE 4% PATCH 1 PATCH TOPICAL (09:22)
[2025-05-16] MEDS: TYLENOL 650 MG PO (09:25)
[2025-05-16] MEDS: REFRESH EYE DROPS (PF) 1 DROPS OPHTH (09:42)
[2025-05-16] MEDS: MYLICON 80 MG PO (10:34)
--- NOTE | 2025-05-16 10:58 | W.PN.HOSP.TC ---
Today's Communication/Plan
-
monitor diet tolerance
holding xarelto for 5d per GI
Hgb stable
PPI bid
Assessment / Plan
Assessment / Plan
Physical exam
Gen-AAOx3, NAD
HEENT-NC, AT, anicteric, clear oral mm
Neck-supple
CV-reg, no M, +S1/S2
Lungs-clear B/L
Abd-soft, mild epigastric tenderness without guarding or rebound
Musculoskeletal-no cyanosis, clubbing
Skin-warm and dry
Neuro-grossly non-focal
Psych-calm, cooperative
Acute upper GI bleed -appreciate GI input, 05/15 endoscopy shows Ruth-Boyer tear, small hiatal hernia, normal duodenum.
GI recommends PPI twice daily -will change from IV to p.o..
PPI twice daily for 4 weeks, then daily. Continue holding anticoagulation for 5 days.
simethicone.
Acute blood loss anemia -due to acute GI bleed in the setting of chronic anticoagulation with Xarelto.
Baseline hemoglobin 13 in March of this year, admission hemoglobin 9.9.
Hold further Xarelto, last dose was Thursday. Relatively hemodynamically stable.
Hemoglobin improved to 8.9 from 6.9, status post 2 units packed red blood cells on 05/14
Trend hemoglobin
Hemoglobin at 10 this morning.
Right shoulder pain�likely from arthritis, order lidocaine patch
Left upper extremity edema�ultrasound negative for clots, stop IV fluids, supportive care
CAD -stable.
History of stroke
GERD
Essential hypertension -resume amlodipine and spironolactone.
Mixed hyperlipidemia
Paroxysmal atrial fibrillation -resume metoprolol, hold Xarelto as above.
History of squamous cell skin cancer
Thrombocytopenia
Platelets improved.
Scoliosis
DVT prophylaxis�SCDs
Full code
PT-home PT vs. no needs. Plan for tentative dc later today.
More than 30 minutes spent in discharge including
Final examination of the patient
Summarizing hospital stay
Instructions for continuing care to all relevant caregivers
Preparation of discharge records, prescriptions, and referral forms
Total time spent (in minutes): 52
Anticipated Discharge: Today
Subjective/Interval History
-
Date of Service: May 16, 2025
States of feeling bloating.
Denies any nausea or vomiting
Was able to tolerate diet earlier today
Objective Data
-
Labs:
Laboratory Results
05/16/25
06:02
WBC 8.5
Hgb 10.0 L
Hct 28.9 L
Plt Count 83 L D
Vital Signs:
Vital Signs
Temp Pulse Resp BP Pulse Ox
98.4 F 79 18 131/84 96
05/16/25 07:30 05/16/25 09:18 05/16/25 07:30 05/16/25 09:18 05/16/25 07:30
I&O
05/15/25 05/16/25 05/17/25
06:59 06:59 06:59
Intake Total 1515 / 1515 120 / 120 300 / 300
Balance 1515 / 1515 120 / 120 300 / 300
[2025-05-16 11:00] VITALS: BP 140/85
--- NOTE | 2025-05-16 12:53 | W.PN.GI.CBS2 ---
Today's Communication / Plan
-
Hgb up to 10 without further bleeding
OK to resume xarelto tomorrow
Continue protonix BID x 4 weeks then daily
Tolerating diet
GI will sign off. Please call back if needed
Assessment / Plan
-
Impression:
UGIB 2/2 MWT
Hgb up to 10
Subjective
Subjective
Date of Service: May 16, 2025
Tolerating diet. No bleeding
Objective
Data Reviewed
Laboratory Data:
Laboratory Results
05/16/25 06:02
05/15/25 06:00
Laboratory Results
PT 20.0 Sec (11.4-14.6) H 05/13/25 14:27
INR 1.68 05/13/25 14:27
APTT 30.8 Sec (23.4-35.0) 05/13/25 14:27
Total Bilirubin 1.6 mg/dl (0.2-1.3) H 05/15/25 06:00
AST 24 U/L (14-36) 05/15/25 06:00
ALT 14 U/L (0-35) 05/15/25 06:00
Alkaline Phosphatase 37 U/L (38-126) L 05/15/25 06:00
Vital Signs and I&O:
Vital Signs
Temp Pulse Resp BP Pulse Ox
97.9 F 84 18 140/85 100
05/16/25 11:00 05/16/25 11:00 05/16/25 11:00 05/16/25 11:00 05/16/25 11:00
I&O
05/15/25 05/16/25 05/17/25
06:59 06:59 06:59
Intake Total 1515 / 1515 120 / 120 780 / 780
Balance 1515 / 1515 120 / 120 780 / 780
Physical Exam
Physical Exam
GI: Soft and Non Tender
--- NOTE | 2025-05-16 13:25 | CM ---
CM reviewed chart and anticipated dc later today
Bedside meeting with pt
PT eval with VN vs no needs recs
Pt would like VN arranged
Referral to [facility] sent per pt request
VN order requested
CM offered call to dtr- pt declined
She already made dtr aware and dtr to transport after work today
IMM completed day prior by previous CM- remains valid
Discharge Disposition- home with [facility], family transport
--- NOTE | 2025-05-16 13:27 | W.DCSUMMARY ---
Discharge Summary
Discharge Data
Date of Admission: 05/13/25
Date of Discharge: 05/16/25
-
Pending Results: No
Hospital Course
85-year-old female past medical history of CAD, stroke, GERD, hypertension, hyperlipidemia, atrial fibrillation, chronic coagulopathy with Xarelto, history of squamous cell skin cancer, presenting with nausea and hematemesis. Patient also had
multiple melanotic stools. Patient is feeling lightheaded. Patient upon admission was eval by gastroenterology. Patient was started on PPI infusion. Patient was kept NPO. Patient hemoglobin was trended status post 2 unit of PRBC. Patient
without any further episodes of bleeding. Patient underwent endoscopy which showed Ruth-Boyer tear, small hiatal hernia. Normal examined duodenum. No biopsy was collected. Gastroenterology recommended patient to be transition to PPI twice
daily for 4 weeks then daily. Postprocedure patient hemoglobin remained stable. No further episode of bleeding. Patient was tolerating diet. Per gastroenterology patient can be restarted on Xarelto on 05/17/2025. Patient will be discharged home
with VNA.
Discharge Plan
-
Patient Disposition: Home with Home Care
Discharge Diagnosis/Procedures: Acute blood loss anemia status post blood transfusion
Acute gastrointestinal bleeding likely secondary to Ruth-Boyer tear
Condition: Fair
Diet: As tolerated
Activity: With assistance and As tolerated
Driving Restrictions: As prior to admission
Blood Work: CBC in 1 week via primary doctor.
Activity Restrictions/Additional Instructions:
Take pantoprazole 40 mg twice daily x 4 weeks and then daily
Okay to restart Xarelto on 05/17/2025.
Instructions: Gastrointestinal Bleeding (DC)
Referrals:
Parker Prince MD [Family Provider, Internal Medicine] - in less than 1 week
Additional Discharge Medication Instructions: Okay to restart Xarelto on 05/17/2025.
Prescriptions:
New
pantoprazole 40 mg Tablet,Delayed Release (Dr/Ec)
40 mg PO BID 30 Days Qty: 60 0RF
Continued
ascorbic acid (vitamin C) [Vitamin C] 1,000 MG tablet
1,000 mg PO DAILY
multivitamin with folic acid [Tab-A-Steve] 1 TABLET tablet
1 tab PO DAILY
cyclobenzaprine 10 mg tablet
10 mg PO DAILY
polyvinyl alcohol [Artificial Tears (polyvin alc)] 1.4 % Drops
1 drp OPHTHALMIC (EYE) DAILYPRN PRN (Reason: dry eyes)
amlodipine 2.5 mg Tablet
2.5 mg PO DAILY
tramadol 50 mg tablet
50 mg PO DAILYPRN PRN (Reason: moderate pain)
spironolactone 25 mg tablet
12.5 mg PO DAILY
metoprolol succinate 25 mg tablet extended release 24 hr
25 mg PO DAILY
memantine 5 mg tablet
5 mg PO BID
cholecalciferol (vitamin D3) 25 mcg (1,000 unit) Tablet
25 mcg PO DAILY
Saline Nasal Mist 3 % Mist
1 spray INTRANASAL DAILYPRN PRN (Reason: dry sinuses)
Xarelto 20 mg tablet
20 mg PO DAILY
coenzyme Q10 100 mg Tablet
100 mg PO DAILY
Discontinued
omeprazole 20 MG capsule,delayed release(DR/EC)
20 mg PO BID
Discharge Orders:
Discharge Patient (As Directed); Ordered 05/16/25
Ordered By: Jayden Jimenez
Discharge Date and Time
Print Language: SLOVENIAN
--- NOTE | 2025-05-16 14:06 | VNURNOTE ---
Home Health Liaison met with patient at bedside to discuss [facility] nurse/therapy, visits, schedule and homebound status. Patient is agreeable and understands that visits at home will be 2-3 x per week to assess and teach medical management. Patient is
aware that [facility] will contact them for start of care in 1-2 days after discharge from .
[facility] referral completed in Care Port.
[2025-05-16 15:11] VITALS: BP 121/62
== END 2025-05-16 15:23 | disposition home health service (06) | DRG 369 ==
LOC: 2 SOUTH 20:15
PROVIDERS: Emergency Medicine; Family Medicine; Hospitalist; ADMITTING PHYSICIAN Hospitalist; ATTENDING PHYSICIAN Hospitalist; CONSULT PHYSICIAN Internal Medicine Gastroenterology; EMERGENCY PHYSICIAN Emergency Medicine; FAMILY PHYSICIAN Internal Medicine Geriatric Medicine
PROC: 30233N1 Transfusion of Nonautologous Red Blood Cells into Peripheral Vein, Percutaneous Approach (ICD-10-PCS; 2025-05-14)
PROC: 0DJ08ZZ Inspection of Upper Intestinal Tract, Via Natural or Artificial Opening Endoscopic (ICD-10-PCS; 2025-05-15)
DX: K22.6 Gastro-esophageal laceration-hemorrhage syndrome (principal); D62 Acute posthemorrhagic anemia; I48.20 Chronic atrial fibrillation, unspecified; K44.9 Diaphragmatic hernia without obstruction or gangrene; Z85.828 Personal history of other malignant neoplasm of skin; I10 Essential (primary) hypertension; I25.10 Atherosclerotic heart disease of native coronary artery without angina pectoris; K21.9 Gastro-esophageal reflux disease without esophagitis; E78.5 Hyperlipidemia, unspecified; Z86.73 Personal history of transient ischemic attack (TIA), and cerebral infarction without residual deficits; M41.9 Scoliosis, unspecified; Z95.5 Presence of coronary angioplasty implant and graft; Z88.5 Allergy status to narcotic agent; E78.2 Mixed hyperlipidemia; I48.0 Paroxysmal atrial fibrillation; D69.6 Thrombocytopenia, unspecified; J45.909 Unspecified asthma, uncomplicated; M19.90 Unspecified osteoarthritis, unspecified site; M81.0 Age-related osteoporosis without current pathological fracture; Z79.01 Long term (current) use of anticoagulants; Z79.899 Other long term (current) drug therapy; Z98.1 Arthrodesis status
CPT/HCPCS: 74177; 80048; 80053; 85014; 85018; 85025; 85027; 85610; 85730; 86850; 86900; 86901; 86920; 93005; 93971; 96374; 97162; 99285; P9016; Q9967

== ENCOUNTER → 2025-10-03 09:08 | Outpatient (REF) | payer OTHER, SELFPAY | LOC: RCS 09:08 | PROVIDERS: ATTENDING PHYSICIAN Nurse Practitioner; FAMILY PHYSICIAN Internal Medicine Geriatric Medicine | DX: I10 Essential (primary) hypertension (principal); I25.10 Atherosclerotic heart disease of native coronary artery without angina pectoris; I34.0 Nonrheumatic mitral (valve) insufficiency | CPT/HCPCS: 93306 ==

== ENCOUNTER 2025-10-24 09:40 | Outpatient (RCR) | payer OTHER, SELFPAY | END 2025-10-24 23:59 | disposition home or self-care (01) | LOC: RPT 09:40 | PROVIDERS: ATTENDING PHYSICIAN Psychiatry & Neurology Neurology; FAMILY PHYSICIAN Internal Medicine Geriatric Medicine | DX: M54.16 Radiculopathy, lumbar region (principal); Z73.6 Limitation of activities due to disability; R26.2 Difficulty in walking, not elsewhere classified; M62.81 Muscle weakness (generalized); G89.29 Other chronic pain; R26.89 Other abnormalities of gait and mobility | CPT/HCPCS: 97110; 97162; 97530 ==